=== PATIENT | female | born 1955 | race African-American/Black ===

== ENCOUNTER 2017-05-05 23:27 | Emergency (ER) | payer OTHER ==
[~2017-05-05 23:27] MED LIST: NORVASC; ZOCOR10 MG
[2017-05-06 00:07] LABS: URINE SOURCE CLEAN CATCH
[2017-05-06 00:12] LABS: URINE APPEARANCE CLEAR; URINE BILIRUBIN NEG (NEG); URINE BLOOD TRACE-INTACT (NEG); URINE COLOR YELLOW; URINE GLUCOSE NEG (NORM); URINE KETONE NEG (NEG); URINE LEUKOCYTE ESTERASE 1+ (NEG); URINE NITRATE NEG (NEG); URINE PROTEIN NEG (NEG); URINE SPECIFIC GRAVITY 1.015 (1.003-1.035); URINE UROBILINOGEN 0.2 MG/DL (NORM)
[2017-05-06 00:15] LABS: MICRO INDICATED? YES
[2017-05-06 00:18] LABS: CULTURE INDICATED? YES; URINE BACTERIA NEG (NEG); URINE SQUAMOUS EPITHELIAL CELL OCCAS /[HPF]; URINE TRANSITIONAL EPI CELLS FEW /[HPF]
[2017-05-06 00:20] LABS: URINE MUCUS PRESENT
== END 2017-05-06 00:34 | disposition home or self-care (01) ==
LOC: SED 23:27
PROVIDERS: Emergency Medicine
DX: N39.0 Urinary tract infection, site not specified (principal); I10 Essential (primary) hypertension
CPT/HCPCS: 81003; 87086; 99283